=== PATIENT | female | born 1950 | race Caucasian/White ===

== ENCOUNTER 2020-01-27 05:33 | Day surgery (SDC) | payer MEDICARE, OTHER ==
[2020-01-27] MEDS ORDERED: Dextrose 5%-0.45% NaCl 1,000 ML IV SCH (06:00)
[2020-01-27] MEDS ORDERED: fentaNYL 100 MCG/2 ML SDV ONE (06:16)
[2020-01-27] MEDS ORDERED: Midazolam 1 MG/ML 2 ML SDV ONE (06:16)
[2020-01-27] MEDS ORDERED: fentaNYL 100 MCG/2 ML SDV IV ONE ×2 (06:31→06:32)
[2020-01-27] MEDS ORDERED: Midazolam 1 MG/ML 2 ML SDV IV ONE ×2 (06:32→06:33)
--- NOTE | 2020-01-27 09:12 | OR ---
DATE: 01/27/2020 PROCEDURES: Esophagogastroduodenoscopy and multiple pinch biopsies. INSTRUMENT USED: GIF-HQ190 Olympus video panendoscope. PREMEDICATIONS: No oral or topical anesthesia used. Fentanyl 100 mcg intravenous, Versed 2 mg intravenous. The procedure was done under pulse oximetry, BP recording, and monitor car operator. INDICATION: The patient with longstanding persistent heartburn and regurgitation, unexplained and not responsive to medical measures. Esophagogastroduodenoscopy is performed for detection of any active erosive lesions, Phillip esophagus and/or malignancy also under consideration, H pylori status to be determined, endoscopic hemostasis therapy if needed. PROCEDURE IN DETAIL: The scope was passed with ease. Adequate visualization of the esophagus was made from proximal to distal areas. No upper esophageal lesions identified. No distal esophageal stricture. No uphill or downhill esophageal varices. No Christine-Andrews tear. Grade A erosive changes were noted by [place] criteria. No esophageal polyp or tumor mass identified. Z-line was seen at 32 cm distal to the oral verge. Four-quadrant biopsies were taken from the Z-line and sent for any histopathologic evidence of intestinal metaplasia. No proximal gastric varices noted. Gastric fundus examination by retroflexion showed no polypoid lesions, no gastric ulcer, malignant mass, or vascular ectasia identified. Couple of benign-appearing erosions were noted in the proximal antrum. Duodenal bulb showed no ulcer. Visualized second part of the duodenum was unremarkable. Multiple pinch biopsies were taken from the gastric antrum and proximal body and sent for PyloriTek test for H pylori and histopathology. No bleeding was noted from any of the visualized areas at the completion of examination. Photographs were taken of the duodenal bulb, gastric antrum, fundus, and distal esophagus. IMPRESSION: 1. Grade A gastroesophageal reflux disease. 2. Gastric erosions. The patient tolerated the procedure well. [facility] /[id number]
--- NOTE | 2020-01-27 11:25 | LETTER ---
01/27/2020 RE: ANAHY DELGADILLO : 1950 Hillary Garland MD [address] [place] [address] Garland: Ms. Anahy Delgadillo had esophagogastroduodenoscopy done this morning and she tolerated the procedure well. I herewith send a copy of the endoscopy note and photographs for your review. Thank you. Sincerely, [facility] /[id number]
== END 2020-01-27 08:48 | disposition home or self-care (01) ==
LOC: DL.ENDO 05:33
PROVIDERS: ATTEND Internal Medicine Gastroenterology
DX: K29.50 Unspecified chronic gastritis without bleeding (principal); K21.9 Gastro-esophageal reflux disease without esophagitis; K25.9 Gastric ulcer, unspecified as acute or chronic, without hemorrhage or perforation; E78.5 Hyperlipidemia, unspecified; E03.9 Hypothyroidism, unspecified; I10 Essential (primary) hypertension; M19.90 Unspecified osteoarthritis, unspecified site; R73.9 Hyperglycemia, unspecified; Z98.890 Other specified postprocedural states; Z88.5 Allergy status to narcotic agent; Z88.8 Allergy status to other drugs, medicaments and biological substances
CPT/HCPCS: 43239; 87077; J2250; J3010; J7042; 88305; 88342

== ENCOUNTER 2020-04-29 06:29 | Day surgery (SDC) | payer MEDICARE, OTHER ==
[~2020-04-29 06:29] MED LIST: Dextrose 5%-0.45% NaCl 1,000 ML IV SCH; Midazolam 1 MG/ML 2 ML SDV ONE; Sodium Chloride 0.9% 10 ML Syringe FLUSH PRN; fentaNYL 100 MCG/2 ML SDV ONE
[2020-04-29] MEDS ORDERED: Midazolam 1 MG/ML 2 ML SDV IV ONE ×7 (06:30→07:22)
[2020-04-29] MEDS ORDERED: fentaNYL 100 MCG/2 ML SDV IV ONE ×3 (06:30→07:13)
--- NOTE | 2020-04-29 08:48 | OR ---
DATE: 04/29/2020 PROCEDURE: Total colonoscopy and pinch biopsy. INSTRUMENT USED: [id number]-H190DL Olympus video colonoscope. PREMEDICATIONS: Fentanyl 125 mcg intravenous, Versed 4 mg intravenous, nasal O2 cannula. The procedure was done under pulse oximetry, BP recording, and front desk monitor. INDICATION: Screening colonoscopic examination is done for detection of any polypoid lesions and removal, endoscopic hemostasis therapy if needed. DESCRIPTION OF PROCEDURE: Initial rectal exam was unremarkable. Rigid anoscopy showed diminutive benign-appearing polyp, removed by pinch biopsy application. The scope was passed with ease up to the ileocecal area. Photographs were taken of the normal-appearing cecum identified by landmarks of appendiceal orifice and double-bulged ileocecal folds. No bleeding was noted from any of the visualized areas at the commencement of the examination. The bowel preparation was found to be adequate. [place] scale 2 in all the regions, total #6. No stricture. No vascular ectasia. No large isolated ulcerations seen. No evidence of diffuse inflammatory bowel disease in the form of friability, contact bleeding, or ulcerations. No polyp or tumor mass identified. Probing the proximal sides of folds and flexures using adequate distention and clearing up the stool material, withdrawal of the scope was made, cecum to rectum time over 6 minutes. No bleeding was noted from any of the visualized areas at the completion of the examination. IMPRESSION: Diminutive rectal polyp. The patient tolerated the procedure well. [facility] /[id number]
--- NOTE | 2020-04-29 11:26 | LETTER ---
04/29/2020 Hillary Garland MD [address] [address] RE: LIZ DELGADILLORIKris VALENZUELA : [address] Garland: Ms. Grace Delgadillo had colonoscopic examination done this morning, and she tolerated the procedure well. I herewith send a copy of the endoscopy note and photographs for your review. Thank you. Sincerely, [facility] /[id number]
== END 2020-04-29 09:35 | disposition home or self-care (01) ==
LOC: DL.ENDO 06:29
PROVIDERS: ATTEND Internal Medicine Gastroenterology
DX: Z12.11 Encounter for screening for malignant neoplasm of colon (principal); K62.5 Hemorrhage of anus and rectum
CPT/HCPCS: 45380; 88305; J2250; J3010; J7042